=== PATIENT | female | born 1985 | race Caucasian/White ===

== ENCOUNTER 2017-03-29 12:19 | Inpatient (IN) | payer OTHER ==
[~2017-03-29] VITALS: Ht 154.9 cm; Wt 60.3 kg
[2017-03-30] MEDS ORDERED: RINGERS SOLUTION,LACTATED 1,000 ML IV SCH (09:03)
[2017-03-30] MEDS ORDERED: OXYTOCIN 30 UNITS/LACT RINGERS 500 ML IV ONE (09:03)
[2017-03-30] MEDS ORDERED: RINGERS SOLUTION,LACTATED 1,000 ML IV PRN (09:03)
[2017-03-30] MEDS ORDERED: OXYTOCIN 30 UNITS/LACT RINGERS 500 ML IV PRN (09:03)
[2017-03-30] MEDS ORDERED: FentaNYL CITRATE-PF 100 MCG/2 ML VIAL IVP PRN (09:15)
[2017-03-30] MEDS ORDERED: METOCLOPRAMIDE HCL 5 MG/ML 2 ML VIAL IVP PRN (09:15)
[2017-03-30] MEDS ORDERED: CITRIC ACID/SODIUM CITRATE 30 ML SOLUTION UDCUP PO PRN (09:15)
[2017-03-30 09:25] VITALS: BP 114/65
[2017-03-30 09:46] LABS: BASOPHILS % (AUTO) 0.4 % (0.0-2.0); HEMATOCRIT 33.5 % (36-46); HEMOGLOBIN 11.6 g/dL (12.0-16.0); LYMPHOCYTES # (AUTO) 1.7 K/uL (1.0-4.8); MEAN CORPUSCULAR HEMOGLOBIN 33.5 pg (26.0-34.0); MEAN CORPUSCULAR HGB CONC 34.6 G/dL (31.0-37.0); MEAN CORPUSCULAR VOLUME 97 fL (80-100); MONOCYTES % (AUTO) 12.1 % (2.0-9.0); NEUTROPHILS # (AUTO) 5.3 K/uL (1.8-7.7); NEUTROPHILS % (AUTO) 64.5 % (40.0-70.0); PLATELET COUNT (AUTO)-OB 133 K/uL (150-450); RED BLOOD CELL COUNT(AUTO) 3.46 MIL/uL (4.00-5.20); RED CELL DISTRIBUTION WIDTH 13.2 % (11.5-14.5)
[2017-03-30] MEDS ORDERED: ROPIVACAINE HCL 0.2% 100 ML ED ONE (10:21)
[2017-03-30] MEDS ORDERED: LIDOCAINE HCL/PF 2% 5 ML VIAL ONE (10:21)
[2017-03-30] MEDS ORDERED: ROPIVACAINE HCL 0.2% 100 ML ED PRN (10:41)
[2017-03-30] MEDS ORDERED: PROMETHAZINE HCL 12.5 MG in SODIUM CHLORIDE 0.9% 50 ML IV PRN (10:45)
[2017-03-30] MEDS ORDERED: NALBUPHINE HCL 10 MG/ML VIAL IVP PRN (10:45)
[2017-03-30] MEDS ORDERED: ONDANSETRON HCL 4 MG/2 ML VIAL IVP PRN (10:45)
[2017-03-30] MEDS ORDERED: DiphenhydrAMINE HCL 50 MG/ML VIAL IVP PRN (10:45)
[2017-03-30] MEDS ORDERED: GLYCERIN/WITCH HAZEL LEAF 40 PADS JAR TP PRN (14:00)
[2017-03-30] MEDS ORDERED: LANOLIN 7 GM OINTMENT TP PRN (14:00)
[2017-03-30] MEDS ORDERED: ACETAMINOPHEN/CODEINE 300-30 MG TABLET PO PRN ×2 (14:00)
[2017-03-30] MEDS ORDERED: BENZOCAINE 20%/MENTHOL 56 GM SPRAY CANISTER TP PRN (14:00)
[2017-03-30] MEDS: IBUPROFEN 800 MG TABLET PO SCH ×2 (14:55→21:34)
[2017-03-30] MEDS ORDERED: OXYGEN THERAPY IH SCH (20:00)
[2017-03-30] MEDS: MAGNESIUM HYDROXIDE SUSPENSION 30 ML UDCUP PO SCH (21:00)
[2017-03-31] MEDS: IBUPROFEN 800 MG TABLET PO SCH ×2 (03:11→09:00)
[2017-03-31] MEDS: MAGNESIUM HYDROXIDE SUSPENSION 30 ML UDCUP PO SCH (09:00)
[2017-03-31] MEDS ORDERED: IBUP-2071 PO (09:06)
[2017-03-31] MEDS ORDERED: DSS100 PO (09:07)
[2017-03-31] MEDS ORDERED: FERR-89 PO (09:07)
== END 2017-03-31 13:45 | disposition home or self-care (01) | DRG 775 ==
LOC: 4S 03-30 08:10 → OBSVTOIN 03-30 08:10
PROVIDERS: ADMIT Obstetrics & Gynecology; ATTEND Obstetrics & Gynecology
PROC: 10E0XZZ Delivery of Products of Conception, External Approach (ICD-10-PCS; principal; 2017-03-30)
PROC: 0UQMXZZ Repair Vulva, External Approach (ICD-10-PCS; 2017-03-30)
PROC: 3E0R3BZ Introduction of Anesthetic Agent into Spinal Canal, Percutaneous Approach (ICD-10-PCS; 2017-03-30)
PROC: 00HU33Z Insertion of Infusion Device into Spinal Canal, Percutaneous Approach (ICD-10-PCS; 2017-03-30)
DX: O69.81X0 Labor and delivery complicated by cord around neck, without compression, not applicable or unspecified (principal); O71.82 Other specified trauma to perineum and vulva; Z37.0 Single live birth; Z3A.39 39 weeks gestation of pregnancy
CPT/HCPCS: J2590; J2795; J3490; J7120